=== PATIENT | male | born 1980 | race Caucasian/White ===

== ENCOUNTER 2022-10-04 10:16 | Emergency (ER) | payer SELFPAY ==
[~2022-10-04] VITALS: Ht 175.2 cm; Wt 68.0 kg
--- NOTE | 2022-10-04 10:47 | Diagnostic Imaging Report ---
Indication: Left hand injury 3 views of left hand show a comminuted fracture of the shaft of the middle phalanx of the middle finger left hand. IMPRESSION: Comminuted compound fracture midshaft of the middle phalanx of the left middle finger. Dictated by: Dictated on workstation # [id number]
[2022-10-04] MEDS ORDERED: ceFAZolin INJECTION 1,000 MG VIAL IV ONE (11:00)
[2022-10-04] MEDS ORDERED: LIDOCAINE 1% INJ 20 ML VIAL INJ ONE (11:00)
--- NOTE | 2022-10-04 11:02 | ED Upper Extremity ---
General Chief Complaint: Upper Extremity Stated Complaint: LT HAND FINGER INJ | TABLE SAW Source: patient Exam Limitations: no limitations History of Present Illness Date Seen by Provider: Oct 04, 2022 Time Seen by Provider: 10:45 Initial Comments 41-year-old male presents for left middle finger injury detected on a table saw. No other injuries. Last tetanus shot was 5 or 6 years ago. Allergies and Home Medications Allergies Coded Allergies: Penicillins (Verified Allergy, Unknown, 10/04/22) Patient Home Medication List Home Medication List Reviewed: Yes Review of Systems Constitutional: no symptoms reported EENTM: no symptoms reported Respiratory: no symptoms reported Cardiovascular: no symptoms reported Gastrointestinal: no symptoms reported Genitourinary: no symptoms reported Musculoskeletal: other Skin: other (Laceration left middle finger) Psychiatric/Neurological: No Symptoms Reported Past Puhkdtp-Ublusw-Hltcuw Hx Patient Social History Tobacco Use?: No Use of E-Cig and/or Vaping dev: No Substance use?: No Alcohol Use?: No Family Medical History Reviewed Nursing Family Hx No Pertinent Family Hx Physical Exam Vital Signs Vital Signs - First Documented 10/04/22 10:25 Temp 36.7 Pulse 86 Resp 18 B/P (MAP) 105/71 (82) Pulse Ox 98 O2 Delivery Room Air Capillary Refill : Height, Weight, BMI Height: '" Weight: lbs. oz. kg; BMI Method: General Appearance: WD/WN, no apparent distress HEENT: normal ENT inspection, pharynx normal Neck: non-tender, supple, normal inspection Cardiovascular: regular rate, rhythm, no murmur Respiratory: chest non-tender, no accessory muscle use Gastrointestinal: normal bowel sounds, soft Wrist: Yes normal inspection, Yes non-tender, Yes no evidence of injury Hand: laceration (Laceration of the extensor surface of left middle finger just distal to the PIP. There is apparent extensor tendon injury in this area. Neurovascular and sensory intact. Hemostatic.) Neurologic/Psychiatric: alert, normal mood/affect, oriented x 3 Skin: other (Laceration as above. Approximately 4 cm) Procedures/Interventions Wound Location: Upper Extremities Wound Length (cm): 4 Wound's Depth, Shape: into muscle, linear Wound Explored: clean Betadine Prep?: Yes Anesthesia: 1% Lidocaine Volume Anesthetic (ccs): 5 Suture: Silk Suture Size: 4-0 Number of Sutures: 2 Layer Closure?: 1 Sterile Dressing Applied?: Yes Progress metal splint applied to hold finger in extension Progress/Results/Core Measures Results/Orders My Orders Orders - CHARMAINE MCGREGOR DO Hand, Left, 3 Views (10/04/22 10:28) Lidocaine 1% Inj 20 Ml (Xylocaine 1% Inj (10/04/22 11:00) Cefazolin Injection (Ancef Injection) (10/04/22 11:00) Dipht,Pertuss(Acell),Tet Adult (Boostrix (10/04/22 11:15) Medications Given in ED Current Medications Medications Dose Ordered Sig/Paula Route Start Time Stop Time Status Last Admin Dose Admin Cefazolin Sodium 1,000 mg ONCE ONCE IV 10/04/22 11:00 10/04/22 11:01 DC 10/04/22 11:02 1,000 MG Diphtheria/ Tetanus/Acell Pertussis 0.5 ml ONCE ONCE IM 10/04/22 11:15 10/04/22 11:16 DC 10/04/22 11:37 0.5 ML Lidocaine HCl 20 ml ONCE ONCE INJ 10/04/22 11:00 10/04/22 11:01 DC 10/04/22 11:02 20 ML Vital Signs/I&O 10/04/22 10:25 Temp 36.7 Pulse 86 Resp 18 B/P (MAP) 105/71 (82) Pulse Ox 98 O2 Delivery Room Air Departure Communication (Admissions) X-ray shows fracture of the middle phalanx. Has apparent extensor tendon injury as well. Irrigated copiously evaluated under anesthesia confirming extensor tendon injury. Spoke with Dr. Benitez office in [place], plastic/hand surgery. They recommended loose approximation with sutures copious irrigation, splint in extension and they will see him at 245 this afternoon. I spoke with patient and his and they state that this is amenable for them. We will splinted and put a dressing on and discharged him straight to hand specialist. He is given Ancef prior to discharge Impression Primary Impression: Laceration of left middle finger Qualified Codes: S61.213A - Laceration without foreign body of left middle finger without damage to nail, initial encounter Additional Impressions: Injury of extensor tendon of hand Qualified Codes: S66.902A - Unspecified injury of unspecified muscle, fascia and tendon at wrist and hand level, left hand, initial encounter Fracture of middle phalanx of finger Qualified Codes: S62.623B - Displaced fracture of middle phalanx of left middle finger, initial encounter for open fracture Disposition: HOME, SELF-CARE Condition: Stable Departure-Patient Inst. Referrals: NO,LOCAL PHYSICIAN (PCP/Family) Primary Care Physician Add. Discharge Instructions: Please leave from here and go to Dr. Benitez's office. The address has been provided for you below. Should you are having trouble finding it, please call the office. You been given tetanus shot and antibiotics here. Please take the disc and paperwork with you to their office. Do not eat or drink anything on the way. Keep the dressing in place. Dr. Edgard Benitez MD Plastic Surgery [address] [facility], [place] [facility] [address] [place] [place] [phone] [facility] All discharge instructions reviewed with patient and/or family. Voiced understanding. CHARMAINE MCGREGOR DO Oct 04, 2022 11:02
[2022-10-04] MEDS ORDERED: TETANUS,DIPTH,PERTUSS P/F (BOOSTRIX) 0.5 ML VIAL IM ONE (11:15)
[2022-10-04 11:46] VITALS: BP 105/71
== END 2022-10-04 11:50 | disposition home or self-care (01) ==
LOC: ER 10:22
DX: S62.623A Displaced fracture of middle phalanx of left middle finger, initial encounter for closed fracture (principal); Z23 Encounter for immunization; Z88.0 Allergy status to penicillin; X58.XXXA Exposure to other specified factors, initial encounter
CPT/HCPCS: 12042; 73130; 90715